=== PATIENT | male | born 1940 | race Caucasian/White ===

== ENCOUNTER 2020-05-03 07:59 | Day surgery (SDC) | payer MEDICARE, OTHER, SELFPAY ==
[2020-05-03] MEDS: Tropicam./Phenyleph. (1/2.5%) 5 ML BTL OS ×3 (08:36→08:48)
[2020-05-03 08:43] VITALS: BP 157/90; PULSE 84; RESP 16; TEMP 36.4; O2SAT 16
[2020-05-03] MEDS: Tetracaine 0.5% 4 ML BTL OS (10:34)
[2020-05-03] MEDS: Balanced Salt Soln.-PLUS 500 ML BAG (10:36)
[2020-05-03] MEDS: Lidocaine 1% Pres-Free 5 ML VIAL (10:39)
[2020-05-03] MEDS: Lidocaine 2% Jelly 6 ML SYR (10:40)
[2020-05-03] MEDS: Povidone-Iodine Ophth 30 ML BTL (10:41)
--- NOTE | 2020-05-03 10:47 | PDOC.DSDIS_ITS ---
Discharge Plan Disposition Patient Disposition: HOME Condition: Good Discharge Details Attending Provider: Hugh Cerrato Primary Care Provider: Guido Gomez [place] Meds and New Rx's Prescriptions: No Action clopidogrel 75 MG tablet 75 mg PO DAILY RF: 0 cilostazol 100 MG tablet 100 mg PO BID RF: 0 levothyroxine 100 MCG tablet 100 mcg PO DAILY RF: 0 amlodipine 10 MG tablet 10 mg PO DAILY RF: 0 nitroglycerin 0.4 MG tablet, sublingual 0.4 mg PO PRN PRNRF: 0 lisinopril 5 MG tablet 5 mg PO DAILY RF: 0 fluticasone propionate 16 GM spray,suspension 2 spray IN PRN PRNRF: 0 multivitamin [Daily Value] 1 EACH tablet 1 tab PO DAILY RF: 0 cholecalciferol (vitamin D3) 1,000 UNIT tablet 1,000 unit PO DAILY RF: 0 atorvastatin [Lipitor] 40 MG tablet 80 mg PO DAILY Qty: 90 RF: 0 Discharge Instructions Stand Alone Forms: Post-op Topical Cataract, Dion Shanks (DSU) Discharge Orders Discharge Orders: Discharge Order (Routine); Ordered 05/03/20 Ordered By: Hugh Cerrato DS: Diagnosis Discharge Diagnosis (1) Cortical cataract of left eye: Status: Resolved (2) Nuclear sclerotic cataract of left eye: Status: Resolved
--- NOTE | 2020-05-03 10:48 | ROE_ITS ---
Date of service: 05/03/20 Time of Service: 10:48 Operative Note Operative Note DATE OF PROCEDURE: 05/03/20 PRE-OP DIAGNOSIS: Nuclear/cortical cataract, left eye POST-OP DIAGNOSIS: same PROCEDURE: Cataract extraction using phacoemulsification with intraocular lens implant, left eye SURGEON: Hugh Cerrato ANESTHESIA: MAC and local (sub-tenon's anesthetic infiltration) PATHOLOGY: none sent COMPLICATIONS: None Patient was transported to: same day Patient's condition: stable Implants: [employer] / [employer] Tecnis ZCB00 Indications: Progressive decreased vision due to cataract, left eye Procedure Description: CATARACT SURGERY OPERATIVE REPORT PREOPERATIVE DIAGNOSIS: Nuclear/cortical cataract, left eye POSTOPERATIVE DIAGNOSIS: Same OPERATION: Cataract extraction using phacoemulsification with posterior chamber intraocular lens implant, left eye. IOL: IOL Field Hauler/Model: J[employer]J Vision / KELSEA Tecnis ZCB00 IOL Power: + 15.5 diopters IOL Serial Number: [id number] Optic Diameter: 6.0mm Haptic/Overall Diameter: 13.0mm PHACO INFO: [employer]ish ebookpieurion Vision System with OZil and Active Fluidics Cumulative Dispersed Energy (CDE): 15.53 seconds SURGEON: Hugh Cerrato MD, RANDOLPH ANESTHESIA: Monitored Anesthesia Care (MAC), with local sub-tenon's anesthetic infiltration COMPLICATIONS: None SPECIMENS: None INDICATIONS FOR PROCEDURE: The patient is an 79-year-old gentleman with history of diminished visual acuity in his left eye. He is noted to have significant nuclear and cortical cataract. The option of cataract surgery was offered and he wished to proceed. PROCEDURE: The correct surgical eye was identified and marked as the left eye and the pupil was dilated in the preoperative area using mydriatics and cycloplegics. The dilated pupil size was 7.0 mm. No oral sedation was given. the patient was brought to the operating room where cardiopulmonary monitoring was instituted and surgical time-out was performed, confirming the correct operative eye and IOL power. Topical anesthesia was administered and ophthalmic povidone-iodine 5% was instilled into the conjunctival fornices. Lidocaine gel was applied to the cornea and the ortega-ocular area was prepped with Betadine 10% solution and draped in the usual sterile fashion for intraocular surgery, including an aperture drape. A Tegaderm transparent film dressing was cut in half and used to cover the lashes and lid margins. Care was taken to sequester the lashes and lid margins under the Tegaderm dressing. A lid speculum was placed between the lids of the operative eye and the Jesika-Lemuel operating microscope was maneuvered into position. James scissors were then used to make a conjunctival buttonhole approximately 6mm posterior to the limbus in the inferonasal quadrant. Blunt dissection was carried out to expose bare sclera, and a blunt-tipped sub-tenon?s anesthesia cannula was introduced and passed posteriorly along the globe where non- preserved plain lidocaine was injected into posterior sub-Tenon?s space. A si deport knife was used to make a paracentesis port superior/superiortemporally. Intraocular phenylephrine/lidocaine was injected into the anterior chamber. The anterior chamber was then filled with viscoelastic. A 2.4mm keratome knife was used to create a half-thickness groove at the limbus and then to construct a three-plane near-clear corneal tunnel extending 2.0mm into clear cornea in the temporal position. . A flap was raised on the anterior capsule and capsulorhexis forceps were used to complete a continuous curvilinear capsulorhexis of 5.5 mm. Balanced salt solution was then used to perform cortical cleaving hydrodissection and nuclear hydrodelineation until the lens could be freely rotated within the capsular bag. The lens nucleus was then disassembled and removed within the capsular bag and iris plane using phacoemulsification. Residual cortical material was removed using the 45-degree angled silicone I/A tip with 0.3mm port. The posterior capsule was carefully polished to remove as much residual lens epithelial cells as safely possible. The capsular bag was then inflated and the anterior chamber deepened with viscoelastic. The lens implant described above was inserted into the capsular bag using the KELSEA [place] Injector. A Kuglen hook was used to dial the IOL into position. Residual viscoelastic was then removed first from posterior to the IOL, then from the anterior chamber using the I/A handpiece. The lens implant was noted to center nicely within the capsular bag. The incisions were stromally hydrated, and the anterior chamber was reformed using BSS. Then 0.1cc of moxifloxacin 5.0mg/ml were injected into the capsular bag and anterior chamber. The incisions were checked with a Weck spear and found to be secure. Several drops of ophthalmic povidone-iodine 5% were then applied to the eye followed by two drops of Imprimis combination prednisolone/moxifloxacin/nepafenac solution. The drapes were removed and a clear plastic protective eye shield was placed over the eye. The patient was then returned to [facility] Day Surgery in stable condition.
== END 2020-05-03 11:05 | disposition home or self-care (01) ==
PROVIDERS: PCP Internal Medicine; Visit Provider Ophthalmology
PROC: (CPT 66984; principal; 2020-05-03 09:45)
DX: H25.012 Cortical age-related cataract, left eye (principal); H25.12 Age-related nuclear cataract, left eye; I10 Essential (primary) hypertension; Z79.02 Long term (current) use of antithrombotics/antiplatelets
CPT/HCPCS: 66984; V2632

== ENCOUNTER 2020-05-13 11:51 | Day surgery (SDC) | payer MEDICARE, OTHER, SELFPAY ==
[2020-05-13 12:21] VITALS: BP 151/80; PULSE 86; RESP 18; TEMP 36.3; O2SAT 97
[2020-05-13] MEDS: Tropicam./Phenyleph. (1/2.5%) 5 ML BTL OD ×3 (12:27→12:37)
[2020-05-13] MEDS: Lidocaine 2% Jelly 6 ML SYR (13:33)
[2020-05-13] MEDS: Tetracaine 0.5% 4 ML BTL OD (13:33)
[2020-05-13] MEDS: Povidone-Iodine Ophth 30 ML BTL (13:33)
[2020-05-13] MEDS: Balanced Salt Soln.-PLUS 500 ML BAG (13:44)
[2020-05-13] MEDS: Lidocaine 1% Pres-Free 5 ML VIAL (13:45)
--- NOTE | 2020-05-13 13:59 | PDOC.DSDIS_ITS ---
Discharge Plan Disposition Patient Disposition: HOME Condition: Good Discharge Details Attending Provider: Hugh Cerrato Primary Care Provider: Guido Gomez [place] Meds and New Rx's Prescriptions: No Action clopidogrel 75 MG tablet 75 mg PO DAILY RF: 0 cilostazol 100 MG tablet 100 mg PO BID RF: 0 levothyroxine 100 MCG tablet 100 mcg PO DAILY RF: 0 amlodipine 10 MG tablet 10 mg PO DAILY RF: 0 nitroglycerin 0.4 MG tablet, sublingual 0.4 mg PO PRN PRNRF: 0 lisinopril 5 MG tablet 5 mg PO DAILY RF: 0 fluticasone propionate 16 GM spray,suspension 2 spray IN PRN PRNRF: 0 multivitamin [Daily Value] 1 EACH tablet 1 tab PO DAILY RF: 0 cholecalciferol (vitamin D3) 1,000 UNIT tablet 1,000 unit PO DAILY RF: 0 atorvastatin [Lipitor] 40 MG tablet 80 mg PO DAILY Qty: 90 RF: 0 ascorbic acid (vitamin C) [Vitamin C] 500 mg Tablet RF: 0 Discharge Instructions Stand Alone Forms: Post-op Block Cataract, Post-op Topical Cataract, Press Ganey (DSU) Discharge Orders Discharge Orders: Discharge Order (Routine); Ordered 05/13/20 Ordered By: Hugh Cerrato DS: Diagnosis Discharge Diagnosis (1) Cortical cataract of right eye: Status: Resolved (2) Nuclear sclerotic cataract of right eye: Status: Acute
--- NOTE | 2020-05-13 14:00 | ROE_ITS ---
Date of service: 05/13/20 Time of Service: 14:00 Operative Note Operative Note DATE OF PROCEDURE: 05/13/20 PRE-OP DIAGNOSIS: Nuclear/cortical cataract, right eye POST-OP DIAGNOSIS: same PROCEDURE: Cataract extraction using phacoemulsification with intraocular lens implant, right eye SURGEON: Hugh Cerrato ANESTHESIA: MAC and local (sub-tenon's anesthetic infiltration) ESTIMATED BLOOD LOSS: 0 PATHOLOGY: none sent COMPLICATIONS: None Patient was transported to: same day Patient's condition: stable Implants: [employer] / [employer] Tecnis ZCB00 intraocular lens Indications: Progressive decreased vision due to cataract, right eye Procedure Description: CATARACT SURGERY OPERATIVE REPORT PREOPERATIVE DIAGNOSIS: Nuclear/cortical cataract, right eye POSTOPERATIVE DIAGNOSIS: Same OPERATION: Cataract extraction using phacoemulsification with posterior chamber intraocular lens implant, right eye. IOL: IOL Slitter And Cutter Operator/Model: J[employer]J Vision / KELSEA Tecnis ZCB00 IOL Power: + 18.50 diopters IOL Serial Number: [id number] Optic Diameter: 6.0mm Haptic/Overall Diameter: 13.0mm PHACO INFO: [employer]ish [employer]urion Vision System with OZil and Active Fluidics Cumulative Dispersed Energy (CDE): 7.92 seconds SURGEON: Hugh Cerrato MD, RANDOLPH ANESTHESIA: Monitored Anesthesia Care (MAC), with local sub-tenon's anesthetic infiltration COMPLICATIONS: None SPECIMENS: None INDICATIONS FOR PROCEDURE: The patient is an 79-year-old gentleman with history of diminished visual acuity in both eyes secondary to the development of bilateral nuclear and cortical cataracts. He is significantly symptomatic that he desired cataract surgery attempt to improve and maximize his vision. He has already undergone cataract surgery in the left eye and is doing well postoperatively. He now presents for cataract surgery of the right eye. PROCEDURE: The correct surgical eye was identified and marked as the right eye and the pupil was dilated in the preoperative area using mydriatics and cycloplegics. The dilated pupil size was 7.0 mm. He elected to proceed without sedation.. The patient was brought to the operating room where cardiopulmonary monitoring was instituted and surgical time-out was performed, confirming the correct operative eye and IOL power. Topical anesthesia was administered and ophthalmic povidone-iodine 5% was instilled into the conjunctival fornices. Lidocaine gel was applied to the cornea and the ortega-ocular area was prepped with Betadine 10% solution and draped in the usual sterile fashion for intraocular surgery, including an aperture drape. A Tegaderm transparent film dressing was cut in half and used to cover the lashes and lid margins. Care was taken to sequester the lashes and lid margins under the Tegaderm dressing. A lid speculum was placed between the lids of the operative eye and the Jesika-Lemuel operating microscope was maneuvered into position. James scissors were then used to make a conjunctival buttonhole approximately 6mm posterior to the limbus in the inferonasal quadrant. Blunt dissection was carried out to expose bare sclera, and a blunt-tipped sub-tenon?s anesthesia cannula was introduced and passed posteriorly along the globe where non-preserved plain lidocaine was injected into posterior sub-Tenon?s space. A sideport knife was used to make a paracentesis port inferiortemporally. Intraocular phenylephrine/lidocaine was injected into the anterior chamber. The anterior chamber was then filled with viscoelastic. A 2.4mm keratome knife was used to create a half-thickness groove at the limbus and then to construct a three-plane near-clear corneal tunnel extending 2.0mm into clear cornea in the superiortemporal position. . A flap was raised on the anterior capsule and capsulorhexis forceps were used to complete a continuous curvilinear capsulorhexis of 5.0 mm. Balanced salt solution was then used to perform cortical cleaving hydrodissection and nuclear hydrodelineation until the lens could be freely rotated within the capsular bag. The lens nucleus was then disassembled and removed within the capsular bag and iris plane using phacoemulsification. Residual cortical material was removed using the I/A handpiece. The posterior c apsule was carefully polished to remove as much residual lens epithelial cells as safely possible. The capsular bag was then inflated and the anterior chamber deepened with viscoelastic. The lens implant described above was inserted into the capsular bag using the KELSEA [place] Injector. A Kuglen hook was used to dial the IOL into position. Residual viscoelastic was then removed first from posterior to the IOL, then from the anterior chamber using the I/A handpiece. The lens implant was noted to center nicely within the capsular bag. The incisions were stromally hydrated, and the anterior chamber was reformed using BSS. Then 0.1cc of moxifloxacin 5.0mg/ml were injected into the capsular bag and anterior chamber. The incisions were checked with a Weck spear and found to be secure. Several drops of ophthalmic povidone-iodine 5% were then applied to the eye followed by two drops of Imprimis combination prednisolone/moxifloxacin/nepafenac solution. The drapes were removed and a clear plastic protective eye shield was placed over the eye. The patient was then returned to Same Day Surgery in stable condition.
== END 2020-05-13 14:21 | disposition home or self-care (01) ==
PROVIDERS: PCP Internal Medicine; Visit Provider Ophthalmology
PROC: (CPT 66984; principal; 2020-05-13 13:30)
DX: H25.011 Cortical age-related cataract, right eye (principal); H25.11 Age-related nuclear cataract, right eye; Z98.42 Cataract extraction status, left eye; Z96.1 Presence of intraocular lens; I10 Essential (primary) hypertension
CPT/HCPCS: 66984; V2632

== ENCOUNTER 2022-11-09 04:20 | Outpatient (CLI) | payer MEDICARE, OTHER, SELFPAY ==
[2022-11-09 11:43] LABS: Abs Immature Grans 0.03 10^3/uL (0.0-0.06); Absolute Basophil Count 0.05 10^3/uL (0.0-0.2); Absolute Lymphocyte Count 1.18 10^3/uL (1.2-3.4); Absolute Monocyte Count 0.62 10^3/uL (0.1-0.8); Absolute Neutrophil Count 3.98 10^3/uL (1.2-6.7); Basophils % 0.8; Eosinophils % 1.7; HGB 14.7 g/dL (13.5-17.5); Immature Grans % 0.5; Lymphocytes % 19.8; MCH 32.2 pg (27.0-33.0); MCHC 32.7 % (32.0-36.0); MCV 99 fL (80-95); MPV 10.6 fL (8.0-11.0); Monocytes % 10.4; Neutrophils % 66.8; Platelet Count 208 10^3/uL (130-400); RBC 4.56 10^6/uL (4.36-5.78); RDW 12.7 % (11.8-14.1); RDW-SD 46.3 fL; WBC 5.96 10^3/uL (4.4-10.8)
[2022-11-09 12:04] LABS: ALT 68 U/L (16-63); AST 40 U/L (15-37); Alkaline Phosphatase 122 U/L (46-116); Anion Gap 6.2 mmol/L (3-11); BUN 31 mg/dL (7-18); Bilirubin, Total 0.7 mg/dL (0.2-1.0); CO2 31.8 mmol/L (21.0-32.0); CREATININE 0.8 mg/dL (0.70-1.30); Calcium 9.5 mg/dL (8.5-10.1); Chloride 104 mmol/L (98-107); Estimated GFR 87.81 (mL/min/1.73m2); Glucose 94 mg/dL (74-106); Magnesium 2.3 mg/dL (1.8-2.4); Potassium 4.3 mmol/L (3.5-5.1); Sodium 142 mmol/L (136-145); Total Protein 8.5 g/dL (6.4-8.2)
== END 2022-11-09 04:21 | disposition home or self-care (01) ==
PROVIDERS: PCP Internal Medicine; Visit Provider Internal Medicine Medical Oncology
DX: C15.8 Malignant neoplasm of overlapping sites of esophagus (principal)
CPT/HCPCS: 36415; 80053; 83735; 85025

== ENCOUNTER 2022-11-16 03:14 | Outpatient (CLI) | payer MEDICARE, OTHER, SELFPAY ==
[2022-11-16 09:15] LABS: Abs Immature Grans 0.05 10^3/uL (0.0-0.06); Absolute Basophil Count 0.04 10^3/uL (0.0-0.2); Absolute Eosinophil Count 0.04 10^3/uL (0.0-0.7); Absolute Lymphocyte Count 0.57 10^3/uL (1.2-3.4); Absolute Monocyte Count 0.24 10^3/uL (0.1-0.8); Absolute Neutrophil Count 2.86 10^3/uL (1.2-6.7); Basophils % 1.1; Eosinophils % 1.1; HCT 42.6 % (40.0-50.0); HGB 13.9 g/dL (13.5-17.5); Immature Grans % 1.3; MCHC 32.6 % (32.0-36.0); MCV 98 fL (80-95); MPV 10.9 fL (8.0-11.0); Monocytes % 6.3; Neutrophils % 75.2; Platelet Count 188 10^3/uL (130-400); RBC 4.35 10^6/uL (4.36-5.78); RDW 12.5 % (11.8-14.1); RDW-SD 45.3 fL
[2022-11-16 09:36] LABS: ALT 65 U/L (16-63); AST 30 U/L (15-37); Albumin 3.7 g/dL (3.4-5.0); Alkaline Phosphatase 106 U/L (46-116); Anion Gap 6.5 mmol/L (3-11); BUN 26 mg/dL (7-18); CO2 31.5 mmol/L (21.0-32.0); CREATININE 0.7 mg/dL (0.70-1.30); Calcium 9.4 mg/dL (8.5-10.1); Chloride 101 mmol/L (98-107); Estimated GFR 91.42 (mL/min/1.73m2); Glucose 107 mg/dL (74-106); Magnesium 2.4 mg/dL (1.8-2.4); Potassium 4.9 mmol/L (3.5-5.1); Sodium 139 mmol/L (136-145); Total Protein 8.1 g/dL (6.4-8.2)
== END 2022-11-16 03:15 | disposition home or self-care (01) ==
LOC: LBO 03:14
PROVIDERS: PCP Internal Medicine; Visit Provider Internal Medicine Medical Oncology
DX: C15.8 Malignant neoplasm of overlapping sites of esophagus (principal)
CPT/HCPCS: 36415; 80053; 83735; 85025

== ENCOUNTER 2022-11-23 02:52 | Outpatient (CLI) | payer MEDICARE, OTHER, SELFPAY ==
[2022-11-23 08:44] LABS: Abs Immature Grans 0.02 10^3/uL (0.0-0.06); Absolute Basophil Count 0.02 10^3/uL (0.0-0.2); Absolute Eosinophil Count 0.04 10^3/uL (0.0-0.7); Absolute Monocyte Count 0.23 10^3/uL (0.1-0.8); Absolute Neutrophil Count 2.05 10^3/uL (1.2-6.7); Basophils % 0.8; Eosinophils % 1.5; HCT 41.4 % (40.0-50.0); HGB 13.4 g/dL (13.5-17.5); Immature Grans % 0.8; Lymphocytes % 11.3; MCH 31.8 pg (27.0-33.0); MCHC 32.4 % (32.0-36.0); MCV 98 fL (80-95); MPV 10.4 fL (8.0-11.0); Monocytes % 8.6; Platelet Count 145 10^3/uL (130-400); RBC 4.22 10^6/uL (4.36-5.78); RDW 12.7 % (11.8-14.1); RDW-SD 44.9 fL; WBC 2.66 10^3/uL (4.4-10.8)
[2022-11-23 08:59] LABS: ALT 34 U/L (16-63); AST 24 U/L (15-37); Albumin 3.7 g/dL (3.4-5.0); Alkaline Phosphatase 106 U/L (46-116); Anion Gap 5.5 mmol/L (3-11); BUN 26 mg/dL (7-18); Bilirubin, Total 0.8 mg/dL (0.2-1.0); CO2 29.5 mmol/L (21.0-32.0); CREATININE 0.7 mg/dL (0.70-1.30); Calcium 9.3 mg/dL (8.5-10.1); Chloride 102 mmol/L (98-107); Estimated GFR 91.42 (mL/min/1.73m2); Glucose 108 mg/dL (74-106); Magnesium 2.3 mg/dL (1.8-2.4); Potassium 4.7 mmol/L (3.5-5.1); Sodium 137 mmol/L (136-145)
== END 2022-11-23 02:53 | disposition home or self-care (01) ==
LOC: LBO 02:52
PROVIDERS: PCP Internal Medicine; Visit Provider Internal Medicine Medical Oncology
DX: C15.8 Malignant neoplasm of overlapping sites of esophagus (principal)
CPT/HCPCS: 36415; 80053; 83735; 85025

== ENCOUNTER 2022-11-30 02:48 | Outpatient (CLI) | payer MEDICARE, OTHER, SELFPAY ==
[2022-11-30 09:14] LABS: Abs Immature Grans 0.04 10^3/uL (0.0-0.06); Absolute Basophil Count 0.01 10^3/uL (0.0-0.2); Absolute Eosinophil Count 0.01 10^3/uL (0.0-0.7); Absolute Lymphocyte Count 0.23 10^3/uL (1.2-3.4); Absolute Monocyte Count 0.24 10^3/uL (0.1-0.8); Absolute Neutrophil Count 1.94 10^3/uL (1.2-6.7); Basophils % 0.4; Eosinophils % 0.4; HCT 40.7 % (40.0-50.0); HGB 13.5 g/dL (13.5-17.5); Immature Grans % 1.6; Lymphocytes % 9.3; MCH 32.3 pg (27.0-33.0); MCHC 33.2 % (32.0-36.0); MCV 97 fL (80-95); MPV 9.8 fL (8.0-11.0); Monocytes % 9.7; Neutrophils % 78.6; Platelet Count 140 10^3/uL (130-400); RBC 4.18 10^6/uL (4.36-5.78); RDW-SD 45.3 fL; WBC 2.47 10^3/uL (4.4-10.8)
[2022-11-30 09:36] LABS: ALT 26 U/L (16-63); AST 21 U/L (15-37); Albumin 3.8 g/dL (3.4-5.0); Alkaline Phosphatase 118 U/L (46-116); Anion Gap 7.1 mmol/L (3-11); BUN 27 mg/dL (7-18); Bilirubin, Total 0.7 mg/dL (0.2-1.0); CO2 29.9 mmol/L (21.0-32.0); CREATININE 0.7 mg/dL (0.70-1.30); Calcium 9.7 mg/dL (8.5-10.1); Chloride 103 mmol/L (98-107); Estimated GFR 91.42 (mL/min/1.73m2); Glucose 115 mg/dL (74-106); Magnesium 2.3 mg/dL (1.8-2.4); Sodium 140 mmol/L (136-145); Total Protein 8.1 g/dL (6.4-8.2)
== END 2022-11-30 02:49 | disposition home or self-care (01) ==
LOC: LBO 02:48
PROVIDERS: PCP Internal Medicine; Visit Provider Internal Medicine Medical Oncology
DX: C15.8 Malignant neoplasm of overlapping sites of esophagus (principal)
CPT/HCPCS: 36415; 80053; 83735; 85025

== ENCOUNTER 2022-12-07 07:27 | Outpatient (CLI) | payer MEDICARE, OTHER, SELFPAY ==
[2022-12-07 07:13] LABS: HCT 37.1 % (40.0-50.0); HGB 12.4 g/dL (13.5-17.5); MCH 32.5 pg (27.0-33.0); MCHC 33.4 % (32.0-36.0); MCV 97 fL (80-95); MPV 9.6 fL (8.0-11.0); Platelet Count 143 10^3/uL (130-400); RBC 3.81 10^6/uL (4.36-5.78); RDW 13.3 % (11.8-14.1); RDW-SD 45.5 fL; WBC 2.97 10^3/uL (4.4-10.8)
[2022-12-07 07:28] LABS: ALT 25 U/L (16-63); AST 20 U/L (15-37); Albumin 3.5 g/dL (3.4-5.0); Alkaline Phosphatase 124 U/L (46-116); BUN 29 mg/dL (7-18); Bilirubin, Total 0.7 mg/dL (0.2-1.0); CREATININE 0.7 mg/dL (0.70-1.30); Calcium 9.3 mg/dL (8.5-10.1); Chloride 104 mmol/L (98-107); Estimated GFR 91.42 (mL/min/1.73m2); Glucose 123 mg/dL (74-106); Magnesium 2.2 mg/dL (1.8-2.4); Potassium 4.8 mmol/L (3.5-5.1); Sodium 140 mmol/L (136-145); Total Protein 7.6 g/dL (6.4-8.2)
[2022-12-07 08:16] LABS: Abs Immature Grans 0.05 10^3/uL (0.0-0.06); Absolute Basophil Count 0.03 10^3/uL (0.0-0.2); Absolute Eosinophil Count 0.02 10^3/uL (0.0-0.7); Absolute Lymphocyte Count 0.16 10^3/uL (1.2-3.4); Absolute Monocyte Count 0.28 10^3/uL (0.1-0.8); Absolute Neutrophil Count 2.46 10^3/uL (1.2-6.7); Eosinophils % 0.7; Immature Grans % 1.7; Lymphocytes % 5.3; Monocytes % 9.3
== END 2022-12-07 07:28 | disposition home or self-care (01) ==
LOC: LBO 07:27
PROVIDERS: PCP Internal Medicine; Visit Provider Internal Medicine Medical Oncology
DX: C15.8 Malignant neoplasm of overlapping sites of esophagus (principal)
CPT/HCPCS: 36415; 80053; 85027; 83735; 85007

== ENCOUNTER 2022-12-14 22:35 | Outpatient (CLI) | payer MEDICARE, OTHER, SELFPAY ==
[2022-12-14 10:18] LABS: HCT 40.5 % (40.0-50.0); HGB 13.4 g/dL (13.5-17.5); MCH 32.2 pg (27.0-33.0); MCHC 33.1 % (32.0-36.0); MCV 97 fL (80-95); MPV 9.8 fL (8.0-11.0); Platelet Count 178 10^3/uL (130-400); RBC 4.16 10^6/uL (4.36-5.78); RDW 14.1 % (11.8-14.1); RDW-SD 47.4 fL; WBC 2.29 10^3/uL (4.4-10.8)
[2022-12-14 10:34] LABS: ALT 28 U/L (16-63); AST 26 U/L (15-37); Albumin 3.6 g/dL (3.4-5.0); Alkaline Phosphatase 150 U/L (46-116); Anion Gap 9.5 mmol/L (3-11); BUN 30 mg/dL (7-18); Bilirubin, Total 0.5 mg/dL (0.2-1.0); CO2 28.5 mmol/L (21.0-32.0); CREATININE 0.8 mg/dL (0.70-1.30); Calcium 9.7 mg/dL (8.5-10.1); Chloride 102 mmol/L (98-107); Estimated GFR 87.81 (mL/min/1.73m2); Glucose 114 mg/dL (74-106); Magnesium 2.4 mg/dL (1.8-2.4); Potassium 4.7 mmol/L (3.5-5.1); Sodium 140 mmol/L (136-145); Total Protein 8.3 g/dL (6.4-8.2)
[2022-12-14 10:45] LABS: Absolute Eosinophil Count 0.09 10^3/uL (0.0-0.7); Absolute Lymphocyte Count 0.44 10^3/uL (1.2-3.4); Absolute Monocyte Count 0.18 10^3/uL (0.1-0.8); Absolute Neutrophil Count 1.53 10^3/uL (1.2-6.7); Bands % 5; Diff Comment Manual Differential; Metamyelocytes % 1; Myelocytes % 1; RBC Morphology Normal
== END 2022-12-14 22:36 | disposition home or self-care (01) ==
LOC: LBO 22:37
PROVIDERS: PCP Internal Medicine; Visit Provider Internal Medicine Medical Oncology
DX: C15.8 Malignant neoplasm of overlapping sites of esophagus (principal)
CPT/HCPCS: 36415; 80053; 83735; 85025

== ENCOUNTER 2023-01-18 02:34 | Outpatient (CLI) | payer MEDICARE, OTHER, SELFPAY ==
[2023-01-18 13:46] LABS: Abs Immature Grans 0.07 10^3/uL (0.0-0.06); Absolute Basophil Count 0.04 10^3/uL (0.0-0.2); Absolute Eosinophil Count 0.17 10^3/uL (0.0-0.7); Absolute Lymphocyte Count 0.66 10^3/uL (1.2-3.4); Absolute Monocyte Count 0.64 10^3/uL (0.1-0.8); Absolute Neutrophil Count 2.94 10^3/uL (1.2-6.7); Basophils % 0.9; Eosinophils % 3.8; HCT 37.2 % (40.0-50.0); Immature Grans % 1.5; Lymphocytes % 14.6; MCH 32.8 pg (27.0-33.0); MCHC 32.3 % (32.0-36.0); MCV 102 fL (80-95); MPV 9.8 fL (8.0-11.0); Monocytes % 14.2; Platelet Count 216 10^3/uL (130-400); RBC 3.66 10^6/uL (4.36-5.78); RDW 18.5 % (11.8-14.1); RDW-SD 67.9 fL; WBC 4.52 10^3/uL (4.4-10.8)
[2023-01-18 14:51] LABS: ALT 38 U/L (16-63); AST 34 U/L (15-37); Albumin 3.7 g/dL (3.4-5.0); Alkaline Phosphatase 170 U/L (46-116); Anion Gap 9.9 mmol/L (3-11); BUN 27 mg/dL (7-18); Bilirubin, Total 0.7 mg/dL (0.2-1.0); CO2 28.1 mmol/L (21.0-32.0); CREATININE 0.7 mg/dL (0.70-1.30); Calcium 9.7 mg/dL (8.5-10.1); Chloride 101 mmol/L (98-107); Estimated GFR 91.42 (mL/min/1.73m2); Glucose 83 mg/dL (74-106); Magnesium 2.2 mg/dL (1.8-2.4); Potassium 4.2 mmol/L (3.5-5.1); Sodium 139 mmol/L (136-145); Total Protein 7.6 g/dL (6.4-8.2)
== END 2023-01-18 02:35 | disposition home or self-care (01) ==
LOC: LBO 02:34
PROVIDERS: PCP Internal Medicine; Visit Provider Internal Medicine Medical Oncology
DX: C15.8 Malignant neoplasm of overlapping sites of esophagus (principal)
CPT/HCPCS: 36415; 80053; 83735; 85025

== ENCOUNTER 2023-03-15 03:45 | Outpatient (CLI) | payer MEDICARE, OTHER, SELFPAY ==
[2023-03-15 13:39] LABS: Abs Immature Grans 0.07 10^3/uL (0.0-0.06); Absolute Basophil Count 0.04 10^3/uL (0.0-0.2); Absolute Eosinophil Count 0.45 10^3/uL (0.0-0.7); Absolute Lymphocyte Count 0.53 10^3/uL (1.2-3.4); Absolute Monocyte Count 0.58 10^3/uL (0.1-0.8); Absolute Neutrophil Count 4.33 10^3/uL (1.2-6.7); Basophils % 0.7; Eosinophils % 7.5; HCT 41.3 % (40.0-50.0); HGB 13.4 g/dL (13.5-17.5); Immature Grans % 1.2; Lymphocytes % 8.8; MCH 32.4 pg (27.0-33.0); MCHC 32.4 % (32.0-36.0); MCV 100 fL (80-95); MPV 9.8 fL (8.0-11.0); Monocytes % 9.7; Neutrophils % 72.1; Platelet Count 279 10^3/uL (130-400); RBC 4.13 10^6/uL (4.36-5.78); RDW 13.7 % (11.8-14.1); RDW-SD 50.5 fL
[2023-03-15 14:03] LABS: ALT 96 U/L (16-63); AST 60 U/L (15-37); Albumin 3.7 g/dL (3.4-5.0); Alkaline Phosphatase 260 U/L (46-116); Anion Gap 11.1 mmol/L (3-11); BUN 25 mg/dL (7-18); Bilirubin, Total 0.5 mg/dL (0.2-1.0); CO2 27.9 mmol/L (21.0-32.0); CREATININE 0.8 mg/dL (0.70-1.30); Calcium 10.4 mg/dL (8.5-10.1); Chloride 100 mmol/L (98-107); Estimated GFR 87.81 (mL/min/1.73m2); Glucose 99 mg/dL (74-106); Magnesium 2.4 mg/dL (1.8-2.4); Potassium 4.1 mmol/L (3.5-5.1); Sodium 139 mmol/L (136-145); Total Protein 9.3 g/dL (6.4-8.2)
== END 2023-03-15 03:46 | disposition home or self-care (01) ==
PROVIDERS: PCP Internal Medicine; Visit Provider Internal Medicine Medical Oncology
DX: C15.8 Malignant neoplasm of overlapping sites of esophagus (principal)
CPT/HCPCS: 36415; 80053; 83735; 85025

== ENCOUNTER 2023-05-05 04:51 | Outpatient (CLI) | payer MEDICARE, OTHER, SELFPAY ==
[2023-05-05 08:27] LABS: Abs Immature Grans 0.02 10^3/uL (0.0-0.06); Absolute Basophil Count 0.03 10^3/uL (0.0-0.2); Absolute Eosinophil Count 0.14 10^3/uL (0.0-0.7); Absolute Lymphocyte Count 0.43 10^3/uL (1.2-3.4); Absolute Monocyte Count 0.58 10^3/uL (0.1-0.8); Absolute Neutrophil Count 2.83 10^3/uL (1.2-6.7); Basophils % 0.7; Eosinophils % 3.5; HCT 39.4 % (40.0-50.0); HGB 12.8 g/dL (13.5-17.5); Immature Grans % 0.5; Lymphocytes % 10.7; MCH 31.2 pg (27.0-33.0); MCHC 32.5 % (32.0-36.0); MCV 96 fL (80-95); MPV 9.7 fL (8.0-11.0); Monocytes % 14.4; Neutrophils % 70.2; Platelet Count 210 10^3/uL (130-400); RDW 14.7 % (11.8-14.1); RDW-SD 52.2 fL; WBC 4.03 10^3/uL (4.4-10.8)
[2023-05-05 08:41] LABS: ALT 30 U/L (16-63); AST 36 U/L (15-37); Albumin 3.5 g/dL (3.4-5.0); Alkaline Phosphatase 168 U/L (46-116); Anion Gap 10.4 mmol/L (3-11); BUN 19 mg/dL (7-18); Bilirubin, Total 0.7 mg/dL (0.2-1.0); CO2 26.6 mmol/L (21.0-32.0); CREATININE 0.9 mg/dL (0.70-1.30); Calcium 9.8 mg/dL (8.5-10.1); Chloride 99 mmol/L (98-107); Estimated GFR 84.74 (mL/min/1.73m2); Glucose 98 mg/dL (74-106); Magnesium 2.2 mg/dL (1.8-2.4); Sodium 136 mmol/L (136-145); Total Protein 8.1 g/dL (6.4-8.2)
== END 2023-05-05 04:52 | disposition home or self-care (01) ==
LOC: LBO 04:51
PROVIDERS: PCP Internal Medicine; Visit Provider Internal Medicine Medical Oncology
DX: C15.8 Malignant neoplasm of overlapping sites of esophagus (principal)
CPT/HCPCS: 36415; 80053; 83735; 85025

== ENCOUNTER 2023-06-07 05:24 | Outpatient (CLI) | payer MEDICARE, OTHER, SELFPAY ==
[2023-06-07 09:09] LABS: Abs Immature Grans 0.04 10^3/uL (0.0-0.06); Absolute Basophil Count 0.05 10^3/uL (0.0-0.2); Absolute Eosinophil Count 0.13 10^3/uL (0.0-0.7); Absolute Lymphocyte Count 0.54 10^3/uL (1.2-3.4); Absolute Monocyte Count 0.57 10^3/uL (0.1-0.8); Basophils % 0.9; Eosinophils % 2.4; HCT 39.8 % (40.0-50.0); Immature Grans % 0.7; Lymphocytes % 9.8; MCH 31.5 pg (27.0-33.0); MCHC 32.7 % (32.0-36.0); MCV 96 fL (80-95); MPV 9.2 fL (8.0-11.0); Monocytes % 10.3; Neutrophils % 75.9; Platelet Count 250 10^3/uL (130-400); RBC 4.13 10^6/uL (4.36-5.78); WBC 5.53 10^3/uL (4.4-10.8)
[2023-06-07 09:24] LABS: ALT 37 U/L (16-63); AST 32 U/L (15-37); Albumin 3.7 g/dL (3.4-5.0); Alkaline Phosphatase 166 U/L (46-116); Anion Gap 8.9 mmol/L (3-11); BUN 23 mg/dL (7-18); Bilirubin, Total 0.5 mg/dL (0.2-1.0); CO2 27.1 mmol/L (21.0-32.0); CREATININE 0.8 mg/dL (0.70-1.30); Calcium 10.3 mg/dL (8.5-10.1); Chloride 100 mmol/L (98-107); Estimated GFR 87.81 (mL/min/1.73m2); Glucose 106 mg/dL (74-106); Magnesium 2.3 mg/dL (1.8-2.4); Potassium 4.1 mmol/L (3.5-5.1); Sodium 136 mmol/L (136-145); Total Protein 8.7 g/dL (6.4-8.2)
== END 2023-06-07 05:25 | disposition home or self-care (01) ==
LOC: LBO 05:24
PROVIDERS: PCP Internal Medicine; Visit Provider Internal Medicine Medical Oncology
DX: C15.8 Malignant neoplasm of overlapping sites of esophagus (principal)
CPT/HCPCS: 36415; 80053; 83735; 85025

== ENCOUNTER → 2023-07-26 03:42 | Outpatient (CLI) | payer MEDICARE, OTHER, SELFPAY ==
--- NOTE | 2023-07-26 | DI.CT_ITS ---
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 TECHNIQUE: Imaging Protocol: Axial computed tomography images with coronal and sagittal reformatted images were created and reviewed CONTRAST MATERIAL: Intravenous: Omnipaque 350 Contrast volume:100 ml Oral: yes / FINDINGS: CHEST: Esophageal wall thickening again noted. Surgical clip again seen at mid esophagus. Small hiatal her amber. Tracheobronchial tree: Patent where visualized. Pulmonary parenchyma: No consolidation. Minimal emphysematous changes. Stable 6 millimeter nodule peripherally in the anterior lingula. Stable 3 millimeter nodule right up per lobe. Stable 3 millimeter nodule left lung apex. Stable 3 millimeter lymph node left upper lobe . Pleura: No effusion or pneumothorax. Lymph nodes: No change in right precarinal lymph node.. Aorta: Thoracic portion non-dilated. Heavy calcification noted at origin of left brachiocephalic ar nicole. Appears occluded. Heart: Trace pericardial effusion anteriorly. Heart not dilated. Coronary artery calcifications a gain noted. Bones: Unremarkable for age. No lytic or blastic lesions.No compression fractures. Soft tissues: Unremarkable. ABDOMEN and PELVIS: Liver: Normal density. Stable low-density lesion in left lobe. New lesions. Gallbladder and biliary tract: No evidence of stones or wall thickening. No biliary dilatation. Pancreas: Normal density, no abnormal calcifications or inflammatory process. Spleen: Normal. Kidneys: Normal size, contour and axis. No radiodense stones. No obstructive uropathy. No suspicious masses seen. Adrenal glands: No masses seen. Aorta: Abdominal portion non-dilated. Heavily calcified. 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 Celiac axis and SMA as well as renal arteries are patent. Apparent occlus ion of the proximal right common iliac artery. Lymph nodes: Within normal limits. Soft tissues: Jejunal feeding tube noted. Bowel: No obstruction or bowel wall thickening. Diverticulosis. Peritoneal cavity: No ascites. No focal collection. No mesenteric inflammatory response. Bones: degenerative changes. No lytic or blastic lesions. IMPRESSION: Stable pulmonary nodules. Stable precarinal lymph node. Stable lesion left lobe of liver. Stable esophageal wall thickening. RADIATION DOSE DELIVERED: 1,182.46mGy.cm Total DLP DATA REPOSITORY: All CT scans at this facility are submitted to the National Radiology Data Registry (NRDR) Dose Index Registry (DIR) with the [employer] (A[employer]). RADIATION OPTIMIZATION: All CT scans at this facility use at least one of these dose optimization te chniques: automated exposure control; mA and/or kV adjustment per patient size (includes targeted exa ms where dose is matched to clinical indication); or iterative reconstruction.
[2023-07-26 07:45] LABS: Abs Immature Grans 0.02 10^3/uL (0.0-0.06); Absolute Basophil Count 0.03 10^3/uL (0.0-0.2); Absolute Eosinophil Count 0.16 10^3/uL (0.0-0.7); Absolute Monocyte Count 0.58 10^3/uL (0.1-0.8); Absolute Neutrophil Count 3.84 10^3/uL (1.2-6.7); Basophils % 0.6; Eosinophils % 3.1; HCT 37.9 % (40.0-50.0); HGB 12.5 g/dL (13.5-17.5); Immature Grans % 0.4; Lymphocytes % 9.7; MCH 31.3 pg (27.0-33.0); MCV 95 fL (80-95); MPV 9.2 fL (8.0-11.0); Monocytes % 11.3; Neutrophils % 74.9; Platelet Count 191 10^3/uL (130-400); RDW 13.6 % (11.8-14.1); RDW-SD 47.7 fL; WBC 5.13 10^3/uL (4.4-10.8)
[2023-07-26 08:00] LABS: ALT 41 U/L (16-63); AST 30 U/L (15-37); Albumin 3.4 g/dL (3.4-5.0); Alkaline Phosphatase 164 U/L (46-116); Anion Gap 11.9 mmol/L (3-11); BUN 23 mg/dL (7-18); Bilirubin, Total 0.6 mg/dL (0.2-1.0); CO2 23.1 mmol/L (21.0-32.0); CREATININE 0.8 mg/dL (0.70-1.30); Calcium 9.7 mg/dL (8.5-10.1); Chloride 102 mmol/L (98-107); Estimated GFR 87.27 (mL/min/1.73m2); Glucose 115 mg/dL (74-106); Magnesium 2.1 mg/dL (1.8-2.4); Potassium 4.1 mmol/L (3.5-5.1); Sodium 137 mmol/L (136-145)
[2023-07-26] MEDS: Barium Sulfate 2% W/V-Berry Smoothie 450 ML BTL PO (09:02)
[2023-07-26] MEDS: Normal Saline - Diluent 50 ML VIAL IJ (09:02)
[2023-07-26] MEDS: Omnipaque 350 MG/ML 500 ML BTL-Imaging package 100 ML IJ (09:03)
== END ==
PROVIDERS: PCP Internal Medicine; Visit Provider Nurse Practitioner Family
DX: C15.5 Malignant neoplasm of lower third of esophagus (principal)
CPT/HCPCS: 80053; 71260; 74160; 83735; 85025

== ENCOUNTER 2023-09-27 15:04 | Outpatient (CLI) | payer MEDICARE, OTHER, SELFPAY ==
[2023-09-27 13:46] LABS: Abs Immature Grans 0.53 10^3/uL (0.0-0.06); Absolute Basophil Count 0.07 10^3/uL (0.0-0.2); Absolute Eosinophil Count 0.15 10^3/uL (0.0-0.7); Absolute Lymphocyte Count 0.61 10^3/uL (1.2-3.4); Absolute Monocyte Count 1.05 10^3/uL (0.1-0.8); Basophils % 0.6 %; Eosinophils % 1.3 %; HCT 37.9 % (40.0-50.0); HGB 12.1 g/dL (13.5-17.5); Immature Grans % 4.5 %; Lymphocytes % 5.1 %; MCH 30.7 pg (27.0-33.0); MCHC 31.9 % (32.0-36.0); MCV 96 fL (80-95); MPV 9.6 fL (8.0-11.0); Monocytes % 8.8 %; Neutrophils % 79.7 %; Platelet Count 394 10^3/uL (130-400); RBC 3.94 10^6/uL (4.36-5.78); RDW 14.8 % (11.8-14.1); RDW-SD 52.8 fL; WBC 11.91 10^3/uL (4.4-10.8)
[2023-09-27 13:48] LABS: Absolute Neutrophil Count 9.49 10^3/uL (1.2-6.7)
[2023-09-27 13:58] LABS: Diff Comment Diff Reviewed; RBC Morphology Normal
[2023-09-27 14:05] LABS: ALT 27 U/L (16-63); AST 28 U/L (15-37); Albumin 2.8 g/dL (3.4-5.0); Alkaline Phosphatase 157 U/L (46-116); Anion Gap 9.9 mmol/L (3-11); BUN 19 mg/dL (7-18); Bilirubin, Total 0.6 mg/dL (0.2-1.0); CO2 28.1 mmol/L (21.0-32.0); Calcium 9.5 mg/dL (8.5-10.1); Chloride 96 mmol/L (98-107); Estimated GFR 74.21 (mL/min/1.73m2); Glucose 116 mg/dL (74-106); Magnesium 2.1 mg/dL (1.8-2.4); Potassium 4.5 mmol/L (3.5-5.1); Sodium 134 mmol/L (136-145); Total Protein 7.6 g/dL (6.4-8.2)
== END 2023-09-27 15:05 | disposition home or self-care (01) ==
LOC: LBO 09-29 15:05
PROVIDERS: PCP Internal Medicine; Visit Provider Internal Medicine Medical Oncology
DX: C15.8 Malignant neoplasm of overlapping sites of esophagus (principal)
CPT/HCPCS: 36415; 80053; 83735; 85025

== ENCOUNTER 2023-10-07 12:44 | Emergency (ER) | payer MEDICARE, OTHER, SELFPAY ==
[2023-10-07] VITALS (48 sets, daily range): BP systolic 80–152; BP diastolic 21–99; PULSE 96–112; RESP 14–30; TEMP 37.2; O2SAT 95–97
[2023-10-07] MEDS: Lactated Ringers 500 ML 1000 ML IV (13:48)
[2023-10-07 13:49] LABS: Abs Immature Grans 0.12 10^3/uL (0.0-0.06); Absolute Basophil Count 0.03 10^3/uL (0.0-0.2); Absolute Eosinophil Count 0.01 10^3/uL (0.0-0.7); Absolute Lymphocyte Count 0.29 10^3/uL (1.2-3.4); Absolute Monocyte Count 1.15 10^3/uL (0.1-0.8); Absolute Neutrophil Count 6.53 10^3/uL (1.2-6.7); Basophils % 0.4 %; Eosinophils % 0.1 %; HGB 11.1 g/dL (13.5-17.5); Immature Grans % 1.5 %; Lymphocytes % 3.6 %; MCH 30.9 pg (27.0-33.0); MCHC 31.7 % (32.0-36.0); MCV 98 fL (80-95); MPV 9.5 fL (8.0-11.0); Monocytes % 14.1 %; Neutrophils % 80.3 %; Platelet Count 282 10^3/uL (130-400); RBC 3.59 10^6/uL (4.36-5.78); RDW 14.6 % (11.8-14.1); RDW-SD 52.6 fL; WBC 8.13 10^3/uL (4.4-10.8)
[2023-10-07 14:58] LABS: ALT 47 U/L (16-63); AST 46 U/L (15-37); Albumin 2.2 g/dL (3.4-5.0); Alkaline Phosphatase 206 U/L (46-116); Anion Gap 6.3 mmol/L (3-11); BUN 27 mg/dL (7-18); Bilirubin, Direct 0.3 mg/dL (0.0-0.2); Bilirubin, Total 0.6 mg/dL (0.2-1.0); CO2 29.7 mmol/L (21.0-32.0); CREATININE 0.7 mg/dL (0.70-1.30); Calcium 9.1 mg/dL (8.5-10.1); Chloride 100 mmol/L (98-107); Estimated GFR 90.86 (mL/min/1.73m2); Glucose 115 mg/dL (74-106); Lipase 21 U/L (16-77); Potassium 4.1 mmol/L (3.5-5.1); Sodium 136 mmol/L (136-145); Total Protein 7.2 g/dL (6.4-8.2)
[2023-10-07] MEDS: Lactated Ringers 500 ML IV (15:04)
[2023-10-07] MEDS: Normal Saline - Diluent 50 ML VIAL IJ (15:18)
[2023-10-07] MEDS: Omnipaque 350 MG/ML 500 ML BTL-Imaging package 100 ML IJ (15:19)
--- NOTE | 2023-10-07 15:34 | ED.GENADUL_ITS ---
Discharge Plan Discharge Details Chief Complaint: Nausea/Vomit/Diar Primary Care Provider: Guido Gomez ED Provider: Seven Pittman Home Meds and New Rx's Prescriptions: No Action fentanyl 25 mcg/hr patch 72 hour 1 patch transdermal Q72H docusate sodium 50 mg/5 mL liquid 100 mg feeding tube BID polyethylene glycol 3350 [Miralax] 17 gram/dose powder 17 g feeding tube DAILY diltiazem HCl 120 mg capsule,extended release 24hr 120 mg PO DAILY oxycodone 5 mg tablet 5 mg PO Q6H PRN acetaminophen 650 mg/20.3 mL solution 650 mg feeding tube TID PRN levothyroxine 100 MCG tablet 100 mcg PO DAILY fluticasone propionate 16 GM spray,suspension 2 spray IN PRN PRN HPI General Mode of arrival: ambulatory . Date/Time Provider Initiated Documentation: 10/07/23 12:58 . Limitations to Documentation: no limitations . Information obtained by: patient and family . HPI Narrative: 83-year-old male with history of esophageal cancer status post chemotherapy and radiation, status post stretching of the esophagus and tear necessitating stent placement in August, status post J-tube placement with recent replacement that malfunction and had to be replaced, here with chief complaint of vomiting. Patient has been vomiting his tube feeds over the past 4 to 5 days. He denies associated abdominal pain. No fevers. He does feel generally weak. is concerned for dehydration. Related Data Home Medications Medication Instructions Recorded Confirmed fluticasone propionate 50 2 spray IN PRN PRN 10/02/16 10/07/23 mcg/actuation nasal spray,suspension levothyroxine 100 mcg tablet 100 mcg PO DAILY 10/02/16 10/07/23 acetaminophen 650 mg/20.3 mL oral 650 mg feeding tube TID PRN 10/01/23 10/07/23 solution diltiazem HCl 120 mg 120 mg PO DAILY 10/01/23 10/07/23 capsule,extended release 24 hr docusate sodium 50 mg/5 mL oral 100 mg feeding tube BID 10/01/23 10/07/23 liquid fentanyl 25 mcg/hr transdermal 1 patch transdermal Q72H 10/01/23 10/07/23 patch oxycodone 5 mg tablet 5 mg PO Q6H PRN 10/01/23 10/07/23 polyethylene glycol 3350 17 17 g feeding tube DAILY 10/01/23 10/07/23 gram/dose oral powder (Miralax) Allergies Allergy/AdvReac Type Severity Reaction Status Date / Time Penicillins Allergy Intermediate Skin Rash Unverified 10/07/23 12:51 metoprolol Allergy Other (See Verified 10/07/23 12:51 Comment) Opioids - Morphine Analogues Allergy Other (See Verified 10/07/23 12:51 Comment) General Stated Complaint: Nausea/Vomit/Diar KARMA: 3 Review of Systems All systems reviewed & are unremarkable except as noted in HPI and below Constitutional Constitutional: Denies fever(s) Gastrointestinal Gastrointestinal: Reports as per HPI Exam Const General: cooperative and no acute distress Nutritional Appearance: thin Orientation: alert HENMT Mouth: mucous membranes dry Eyes Conjunctivae: normal conjunctivae Sclera: normal sclerae Resp Auscultation: clear to auscultation bilaterally, no rales, no rhonchi and no wheezes Cardio Rate: regular rate and not tachycardic Rhythm: regular rhythm GI Palpation: soft, not firm, no guarding, no masses, not rigid and nontender Other: J-tube ostomy intact Neuro General: patient alert, patient awake, patient oriented x3 and tone normal Course Vital Signs Vital signs: Vital Signs Temperature 37.2 C 10/07/23 12:48 Pulse 112 H 10/07/23 12:48 Respiratory Rate 20 10/07/23 12:48 Blood Pressure 127/58 L 10/07/23 12:48 Pulse Oximetry 97 10/07/23 12:48 Temperature 37.2 C 10/07/23 12:52 Temperature Source Temporal Artery Scan 10/07/23 12:52 Pulse 98 H 10/07/23 14:36 Pulse 100 H 10/07/23 14:40 Respiratory Rate 24 10/07/23 14:40 Respiratory Effort Normal, Non-Labored 10/07/23 12:52 Blood Pressure 134/58 L 10/07/23 14:36 Blood Pressure Mean 82 10/07/23 14:36 Blood Pressure Position Sitting 10/07/23 12:52 Pulse Oximetry 97 10/07/23 12:52 Oxygen Delivery Method Room Air 10/07/23 12:52 Oxygen Flow Rate 0 10/07/23 12:48 Lab/Test Results Lab/Test Results: Laboratory Tests Range/Units 10/07/23 10/07/23 13:43 14:30 WBC (4.4-10.8) 10^3/uL 8.13 RBC (4.36-5.78) 10^6/uL 3.59 L Hgb (13.5-17.5) g/dL 11.1 L Hct (40.0-50.0) % 35.0 L MCV (80-95) fL 98 H MCH (27.0-33.0) pg 30.9 MCHC (32.0-36.0) % 31.7 L RDW (11.8-14.1) % 14.6 H Plt Count (130-400) 10^3/uL 282 MPV (8.0-11.0) fL 9.5 Immature Gran % % 1.5 Neutrophils % % 80.3 Lymphocytes % % 3.6 Monocytes % % 14.1 Eosinophils % % 0.1 Basophils % % 0.4 Nucleated RBC % (0.0-0.3) % 0.0 Absolute Neutrophils (1.2-6.7) 10^3/uL 6.53 Absolute Lymphocytes (1.2-3.4) 10^3/uL 0.29 L Absolute Monocytes (0.1-0.8) 10^3/uL 1.15 H Absolute Eosinophils (0.0-0.7) 10^3/uL 0.01 Absolute Basophils (0.0-0.2) 10^3/uL 0.03 Sodium Cancelled 136 Potassium Cancelled 4.1 Chloride Cancelled 100 Carbon Dioxide Cancelled 29.7 Anion Gap Cancelled 6.3 BUN Cancelled 27 H Creatinine Cancelled 0.7 Est GFR (CKD-EPI 2020) Cancelled 90.86 Glucose Cancelled 115 H Calcium Cancelled 9.1 Magnesium Cancelled 2.0 Total Bilirubin Cancelled 0.6 Conjugated Bilirubin Cancelled 0.3 H AST Cancelled 46 H ALT Cancelled 47 Alkaline Phosphatase Cancelled 206 H Total Protein Cancelled 7.2 Albumin Cancelled 2.2 L Lipase Cancelled 21 Medical Decision Making 1855?- 83-year-old male with history of esophageal cancer status post chemo, radiation, stent placement for esophageal tear, J-tube placement with recent complicated replacement, here with vomiting of tube feeds over the past 4 to 5 days. Patient takes very little oral intake and is reliant on tube feeds. notes he has been consistently vomiting tube feeds this week. Patient is tachycardic with normal blood pressure. Abdominal exam is benign. Patient does appear mildly dehydrated. I will give IV fluid bolus. Consider electrolyte abnormalities and biliary disease. Labs reviewed: Conjugated bilirubin and AST only slightly elevated. Alk phos elevated. No notable electrolyte abnormalities. No acidosis. Plan for CT of the chest abdomen pelvis to assess for obstructive process versus migration of the J-tube. Lab Data Lab results reviewed: Yes I reviewed the patient's lab results. Labs: Laboratory Tests Range/Units 10/07/23 10/07/23 13:43 14:30 WBC (4.4-10.8) 10^3/uL 8.13 RBC (4.36-5.78) 10^6/uL 3.59 L Hgb (13.5-17.5) g/dL 11.1 L Hct (40.0-50.0) % 35.0 L MCV (80-95) fL 98 H MCH (27.0-33.0) pg 30.9 MCHC (32.0-36.0) % 31.7 L RDW (11.8-14.1) % 14.6 H Plt Count (130-400) 10^3/uL 282 MPV (8.0-11.0) fL 9.5 Immature Gran % % 1.5 Neutrophils % % 80.3 Lymphocytes % % 3.6 Monocytes % % 14.1 Eosinophils % % 0.1 Basophils % % 0.4 Nucleated RBC % (0.0-0.3) % 0.0 Absolute Neutrophils (1.2-6.7) 10^3/uL 6.53 Absolute Lymphocytes (1.2-3.4) 10^3/uL 0.29 L Absolute Monocytes (0.1-0.8) 10^3/uL 1.15 H Absolute Eosinophils (0.0-0.7) 10^3/uL 0.01 Absolute Basophils (0.0-0.2) 10^3/uL 0.03 Sodium Cancelled 136 Potassium Cancelled 4.1 Chloride Cancelled 100 Carbon Dioxide Cancelled 29.7 Anion Gap Cancelled 6.3 BUN Cancelled 27 H Creatinine Cancelled 0.7 Est GFR (CKD-EPI 2020) Cancelled 90.86 Glucose Cancelled 115 H Calcium Cancelled 9.1 Magnesium Cancelled 2.0 Total Bilirubin Cancelled 0.6 Conjugated Bilirubin Cancelled 0.3 H AST Cancelled 46 H ALT Cancelled 47 Alkaline Phosphatase Cancelled 206 H Total Protein Cancelled 7.2 Albumin Cancelled 2.2 L Lipase Cancelled 21 Quality:SDOH Health Related Social Needs: No Data to Display PFSH All Active Problems 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 states that it was when he would exert himself and when he chopped wood (he is very active) and he would stop the activity and it would resolve itself. states he had a full cardiac workup by Dr. Moran. Hx of peripheral vascular disease Hypothyroidism pt. reports he is on levothyroxine for suppression Hyperlipemia HTN (hypertension) takes regularly last bp 05/01/20 106/61, f/u with PCP yesterday Cerebral infarction 08/2016 F/U with PCP Dr. Guido Gomez at [facility] in [place], [place] Cervicalgia Surgical History Hx of colonoscopy Hx of cataract extraction Cortical cataract of right eye History of lobectomy of thyroid History of tonsillectomy and adenoidectomy Nuclear sclerotic cataract of left eye Cortical cataract of left eye Social History Smoking/Tobacco Use Status: Former Tobacco Use Quit Date: 05/24/86 Smoking risk assessment performed?: Yes Alcohol Intake: current Alcohol Intake frequency: a few times a week Alcohol type: beer and wine Substance use type: does not use Details: alcohol: t-1, beer Do you feel safe at home: Yes Do you feel safe in your relationship?: Yes
--- NOTE | 2023-10-07 15:52 | W.EDPROG ---
Date of service: 10/07/23 Time of Service: 15:52 Medical Decision Making This dictation utilizes [id number] dictation software and may contain unedited grammatical errors. Patient seen in sign-out from Dr. Pittman- please see his complete note. Essentially, this 83 y/o M presents shift change ED today with a chief complaint of vomiting up J-tube feedings. Had complicated J-tube placement at [facility]. Known esohpageal CA with stenting. Nontoxic vitals, reassuring labs. Concern is for J-tube migration vs new obstruction vs esophageal pathology vs new CA. Pending CT Chest/ABD/Pelvis w Contrast. Patients' medical history: [ ]. Family and social history: [ ]. Pertinent exam findings / vital signs include [ ]. Differential / pathologies of concern include [ ]. Diagnostic studies of: -CBC, BMP, LFTs, Lipase, Magnesium, CT Chest/ABD/Pelvis w Contrast. *Add Trop/BNP, EKG -labs reassuring, no leukocytosis, mild chronic anemia -BMP reassuring -LFTs mild elevation -Lipase WNL -magnesium slight low -CT Chest/ABD/Pelvis shows bilateral pleural effusions and infiltrates, question PNA, new pericardial effusion, new mets and enlarging lymphadenopathy -EKG shows sinus tachycardia 109 bpm, low voltage consistent with pericardial effusion, no overt ST changes, normal QT QTc, normal axis, some Q waves that are not 1 mm deep or wide Interventions of: -Received IV LR prior to shift change, giving 1g IV ceftriaxone for PNA. -Consult [facility] for transfer ED Course/Assessment/Plan: Patient signed out to me by Dr. Pittman, essentially this 83-year-old male presented for vomiting after his J-tube feedings, this was placed by IR at [facility]. This has been ongoing for [address] chest/abdomen/pelvis was performed to evaluate J-tube placement as well as possible esophageal stent problem from known esophageal cancer. CT has concerning findings for new pericardial effusion, bilateral large pleural effusions with pneumonia, and diffuse progressive mets in the chest. Due to these findings I [facility] as he likely needs drainage of pericardial effusion. I spoke with both hospitalist and cardiology services- accepted for next available bed. Patient also has mild hypoxic respiratory failure did provide IV ceftriaxone to treat for possible pneumonia though he is unlikely to have sepsis at this time. He remains normotensive with mild tachycardia and mild hypoxia on nasal cannula 2 L. Patient states he would like basic lifesaving interventions performed like CPR, but no intubation or prolonged artificial measures. 192 - Accepted by [facility] next available bed by Hospitalist Dr. Mullins 1925 - Spoke with Cardiology Dr. Cuevas - advise hemodynamic monitoring, emergent transfer for instability and slab lifting engineer activation, plan to drain tomorrow. Disposition of Pericardial Effusion, Pneumonia, Hypoxic Respiratory Failure, Metastatic Disease. Patient verbalized understanding of the plan and return to ED criteria and engaged in shared decision making. Medical Records Medical records reviewed: Yes I reviewed the patient's medical records. Imaging Data Radiologic Study: Attestation: I personally reviewed and interpreted this imaging study as follows: Imaging: CT Scan Radiologist's impression: EXAM: CT CHEST/ABD/PEL W CLINICAL HISTORY: vomiting J tube feeds TECHNIQUE: Imaging Protocol: Axial computed tomography images with coronal and sagittal reformatted images were created and reviewed CONTRAST MATERIAL: Intravenous: Omnipaque 350 contrast volume:100 mL Oral: No COMPARISON: CT CT CHEST/ABD W from 07/26/2023 FINDINGS: CHEST: Tracheobronchial tree: Patent where visualized. Pulmonary parenchyma: There has been interval development of large bilateral pleural effusion and significant compression atelectasis and/or pneumonia in the lower lobes bilaterally. There is a 3 mm nodule in the right upper lobe (series 5, image 220). There is a 4 mm nodule in the posterior aspect of the right upper lobe which was not present on the prior examination (series 5, image 115). The 6 mm nodule in the anterior lingula is unchanged (series 5, image 285). There is a new 4 mm nodule in the anterior aspect of the right upper lobe (series 5, image 191). 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 The left lobe it is grossly unremarkable. Mediastinum and [place]: There are enlarged mediastinal lymph nodes present. The lymph node anterior to the superior vena cava has shown interval increase in size measuring 1.5 cm (series 5 image 201 compared to 1 cm on the prior examination. The pretracheal lymph node has shown interval increase in size measuring 2 x 1.5 cm (series 5, image 255). This compared to 1.4 x 1 cm. There has been interval placement of a stent in the distal half of the esophagus extending into the stomach. There is thickening of the wall of the esophagus again noted. Pleura: No pneumothorax. Heart: The heart is not dilated. Coronary artery calcifications are present. There is now moderate sized pericardial effusion. Pulmonary arteries: Due to the timing of the bolus, peripheral pulmonary artery evaluation is limited. No large central pulmonary embolus is present. Aorta: Thoracic aorta non-dilated. No evidence of dissection. Atherosclerotic calcification is present. 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 There is distal reconstitution. Lymph nodes: No axillary adenopathy. No supraclavicular adenopathy. Soft tissues: Unremarkable. Bones:Within normal limits for the patient's age. No aggressive osseous lesions. ABDOMEN: Liver: Normal density. There is a cyst in the left lobe of the liver. No suspicious hepatic masses are seen. Portal, Superior Mesenteric, and Splenic Veins: Unremarkable. Gallbladder and Biliary Tract: No radiodense calculus or dilation. Pancreas: Normal density, no abnormal calcifications or inflammatory process. There is a duodenal diverticulum adjacent to the head of the pancreas. Spleen: There is a cyst or hemangioma in the spleen. This is unchanged. Adrenals: No masses seen. Kidneys: Normal size, contour and axis. No radiodense stones or obstructive uropathy. Simple cysts are seen in the right kidney. No follow-up is recommended. Abdominal Aorta: Abdominal portion non-dilated. Atherosclerotic calcification is present. There is dense atherosclerotic calcification in the common iliac arteries bilaterally. There is marked stenosis of the right common femoral artery. There is also marked stenosis in the common iliac arteries bilaterally. Bowel: There is diverticulosis of the colon without evidence of acute diverticulitis. There is a J-tube in place. There is no evidence of bowel obstruction or inflammation. No evidence of appendicitis. Peritoneal Cavity: No ascites, collection or mesenteric inflammatory response. No free air. Lymph Nodes: Within normal limits. Bones: Within normal limits for the patient's age. No aggressive osseous lesions. Soft Tissues: Unremarkable. PELVIS: Bladder: Symmetric distention, no gross wall thickening. Reproductive Organs: Mildly enlarged prostate gland. Lymph Nodes: Within normal limits. Bones: Within normal limits. IMPRESSION: 1. Findings suggest a progression of metastatic disease in the chest with enlarging lymph nodes and increased number of pulmonary nodules. 2. Interval development of large bilateral pleural effusions and subjacent infiltrates which may represent atelectasis or pneumonia. 3. Interval placement of a distal esophageal stent extending into the stomach. There is persistent thickening of the wall of the esophagus. 4. Occlusion of the proximal left subclavian artery. 5. Development of a moderate size pericardial effusion. 6. Extensive atherosclerotic disease in the abdomen and pelvis causing marked stenosis of the common iliac arteries bilaterally in the right common femoral artery. 7. J-tube is in place. No evidence of bowel obstruction or inflammation. Lab Data Lab results reviewed: Yes I reviewed the patient's lab results. Labs: Laboratory Tests Range/Units 10/07/23 10/07/23 13:43 14:30 WBC (4.4-10.8) 10^3/uL 8.13 RBC (4.36-5.78) 10^6/uL 3.59 L Hgb (13.5-17.5) g/dL 11.1 L Hct (40.0-50.0) % 35.0 L MCV (80-95) fL 98 H MCH (27.0-33.0) pg 30.9 MCHC (32.0-36.0) % 31.7 L RDW (11.8-14.1) % 14.6 H Plt Count (130-400) 10^3/uL 282 MPV (8.0-11.0) fL 9.5 Immature Gran % % 1.5 Neutrophils % % 80.3 Lymphocytes % % 3.6 Monocytes % % 14.1 Eosinophils % % 0.1 Basophils % % 0.4 Nucleated RBC % (0.0-0.3) % 0.0 Absolute Neutrophils (1.2-6.7) 10^3/uL 6.53 Absolute Lymphocytes (1.2-3.4) 10^3/uL 0.29 L Absolute Monocytes (0.1-0.8) 10^3/uL 1.15 H Absolute Eosinophils (0.0-0.7) 10^3/uL 0.01 Absolute Basophils (0.0-0.2) 10^3/uL 0.03 Sodium Cancelled 136 Potassium Cancelled 4.1 Chloride Cancelled 100 Carbon Dioxide Cancelled 29.7 Anion Gap Cancelled 6.3 BUN Cancelled 27 H Creatinine Cancelled 0.7 Est GFR (CKD-EPI 2020) Cancelled 90.86 Glucose Cancelled 115 H Calcium Cancelled 9.1 Magnesium Cancelled 2.0 Total Bilirubin Cancelled 0.6 Conjugated Bilirubin Cancelled 0.3 H AST Cancelled 46 H ALT Cancelled 47 Alkaline Phosphatase Cancelled 206 H Total Protein Cancelled 7.2 Albumin Cancelled 2.2 L Lipase Cancelled 21 Quality:SDOH Health Related Social Needs: No Data to Display Sign Out Sign Out Data: Sign Out Comment: Follow-up on CT of the chest, abdomen and pelvis. Reassess patient for disposition. Consider consultation with specialty team at [facility] pending CT findings. Last updated by Seven Pittman MD at 10/07/23 15:43 Discharge Plan Disposition Patient Disposition: Transfer-Acute Inpatient Care Specific Acute Inpt Facility: [facility] Condition: Serious Discharge Details Clinical Impression: Hypoxic respiratory failure, Pericardial effusion, Metastatic disease, Pneumonia Primary Care Provider: Guido Gomez ED Provider: Abilio Ash Home Meds and New Rx's Prescriptions: No Action fentanyl 25 mcg/hr patch 72 hour 1 patch transdermal Q72H docusate sodium 50 mg/5 mL liquid 100 mg feeding tube BID polyethylene glycol 3350 [Miralax] 17 gram/dose powder 17 g feeding tube DAILY diltiazem HCl 120 mg capsule,extended release 24hr 120 mg PO DAILY oxycodone 5 mg tablet 5 mg PO Q6H PRN acetaminophen 650 mg/20.3 mL solution 650 mg feeding tube TID PRN levothyroxine 100 MCG tablet 100 mcg PO DAILY fluticasone propionate 16 GM spray,suspension 2 spray IN PRN PRN
--- NOTE | 2023-10-07 16:37 | DI.CT_ITS ---
Exam(s) CT CHEST/ABD/PEL W EXAM: CT CHEST/ABD/PEL W CLINICAL HISTORY: vomiting J tube feeds TECHNIQUE: Imaging Protocol: Axial computed tomography images with coronal and sagittal reformatted images were created and reviewed CONTRAST MATERIAL: Intravenous: Omnipaque 350 contrast volume:100 mL Oral: No COMPARISON: CT CT CHEST/ABD W from 07/26/2023 FINDINGS: CHEST: Tracheobronchial tree: Patent where visualized. Pulmonary parenchyma: There has been interval development of large bilateral pleural effusion and sig nificant compression atelectasis and/or pneumonia in the lower lobes bilaterally. There is a 3 mm no dule in the right upper lobe (series 5, image 220). There is a 4 mm nodule in the posterior aspect o f the right upper lobe which was not present on the prior examination (series 5, image 115). The 6 m m nodule in the anterior lingula is unchanged (series 5, image 285). There is a new 4 mm nodule in t he anterior aspect of the right upper lobe (series 5, image 191). 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 The left lobe it is grossly unremarkable. Mediastinum and Brittney: There are enlarged mediastinal lymph nodes present. The lymph node anterior to the superior vena cava has shown interval increase in size measuring 1.5 cm (series 5 image 201 comp ared to 1 cm on the prior examination. The pretracheal lymph node has shown interval increase in siz e measuring 2 x 1.5 cm (series 5, image 255). This compared to 1.4 x 1 cm. There has been interval placement of a stent in the distal half of the esophagus extending into the stomach. There is thicke litzy of the wall of the esophagus again noted. Pleura: No pneumothorax. Heart: The heart is not dilated. Coronary artery calcifications are present. There is now moderate s ized pericardial effusion. Pulmonary arteries: Due to the timing of the bolus, peripheral pulmonary artery evaluation is limited . No large central pulmonary embolus is present. Aorta: Thoracic aorta non-dilated. No evidence of dissection. Atherosclerotic calcification is prese nt. 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 There is distal reconstitution. Lymph nodes: No axillary adenopathy. No supraclavicular adenopathy. Soft tissues: Unremarkable. Bones:Within normal limits for the patient's age. No aggressive osseous lesions. ABDOMEN: Liver: Normal density. There is a cyst in the left lobe of the liver. No suspicious hepatic masses a re seen. Portal, Superior Mesenteric, and Splenic Veins: Unremarkable. Gallbladder and Biliary Tract: No radiodense calculus or dilation. Pancreas: Normal density, no abnormal calcifications or inflammatory process. There is a duodenal div erticulum adjacent to the head of the pancreas. Spleen: There is a cyst or hemangioma in the spleen. This is unchanged. Adrenals: No masses seen. Kidneys: Normal size, contour and axis. No radiodense stones or obstructive uropathy. Simple cysts ar e seen in the right kidney. No follow-up is recommended. Abdominal Aorta: Abdominal portion non-dilated. Atherosclerotic calcification is present. There is d ense atherosclerotic calcification in the common iliac arteries bilaterally. There is marked stenosi s of the right common femoral artery. There is also marked stenosis in the common iliac arteries avila aterally. Bowel: There is diverticulosis of the colon without evidence of acute diverticulitis. There is a J-t ube in place. There is no evidence of bowel obstruction or inflammation. No evidence of appendiciti s. Peritoneal Cavity: No ascites, collection or mesenteric inflammatory response. No free air. Lymph Nodes: Within normal limits. Bones: Within normal limits for the patient's age. No aggressive osseous lesions. Soft Tissues: Unremarkable. PELVIS: Bladder: Symmetric distention, no gross wall thickening. Reproductive Organs: Mildly enlarged prostate gland. Lymph Nodes: Within normal limits. Bones: Within normal limits. IMPRESSION: 1. 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 2. Interval development of large bilateral pleural effusions and subjacent infiltrates which may repr esent atelectasis or pneumonia. 3. Interval placement of a distal esophageal stent extending into the stomach. There is persistent t hickening of the wall of the esophagus. 4. Occlusion of the proximal left subclavian artery. 5. Development of a moderate size pericardial effusion. 6. Extensive atherosclerotic disease in the abdomen and pelvis causing marked stenosis of the common iliac arteries bilaterally in the right common femoral artery. 7. J-tube is in place. No evidence of bowel obstruction or inflammation. RADIATION DOSE DELIVERED: 1,047.38mGy.cm Total DLP DATA REPOSITORY: All CT scans at this facility are submitted to the National Radiology Data Registry (NRDR) Dose Index Registry (DIR) with the [employer] ([employer]). RADIATION OPTIMIZATION: All CT scans at this facility use at least one of these dose optimization te chniques: automated exposure control; mA and/or kV adjustment per patient size (includes targeted exa ms where dose is matched to clinical indication); or iterative reconstruction.
--- NOTE | 2023-10-07 18:00 | RT.EKG_ITS ---
APPROVED REPORT Exam: Resting ECG Reason for Exam: pericardial effusion Patient Location: E HR:109 bpm ECG Measurements Heart Rate 109 AXIS OK 156 P 47 QRSd 96 QRS 56 QT 341 T 33 QTc 461 Conclusion Sinus tachycardia...rate> 99 Low voltage, extremity leads...all extremity leads <0.5mV Normal [place] Nonspecific ST-T changes
[2023-10-07] MEDS: cefTRIAXone 1 GM/50 ML BAG IVPB (20:20)
[2023-10-07] MEDS: Normal Saline Flush 10 ML SYR IVP (20:21)
[2023-10-07 20:40] LABS: BE (Venous) 7 mmol/L (-2-3); HCO3 (Venous) 31 mmol/L (23-28); O2 Sat (Venous) 62 %; TCO2 (Venous) 29 mmol/L (24-29); pCO2 (Venous) 41 mmHg (41-51); pH (Venous) 7.48 (7.31-7.41); pO2 (Venous) 33 mmHg
[2023-10-07 21:04] LABS: NT-proBNP 728 pg/mL (<300); Troponin I < 50 ng/L (< or =60)
== END 2023-10-07 21:08 | disposition short-term general hospital (02) ==
PROVIDERS: Student in an Organized Health Care Education/Training Program; Emergency Provider Physician Assistant; PCP Internal Medicine
DX: R11.10 Vomiting, unspecified (principal); R19.7 Diarrhea, unspecified; I10 Essential (primary) hypertension; E78.5 Hyperlipidemia, unspecified; Z86.73 Personal history of transient ischemic attack (TIA), and cerebral infarction without residual deficits; Z93.1 Gastrostomy status; Z85.01 Personal history of malignant neoplasm of esophagus; Z92.21 Personal history of antineoplastic chemotherapy; Z92.3 Personal history of irradiation; Z87.891 Personal history of nicotine dependence
CPT/HCPCS: 00123; 74177; 80048; 80076; 82805; 83690; 93005; 96361; 96374; 99285; 71260; 83735; 83880; 84484; 85025; 93010; 99284; J0696